=== PATIENT | male | born 1955 | race African-American/Black ===

== ENCOUNTER 2024-05-02 20:12 | Emergency (ER) | payer MEDICARE, OTHER ==
[~2024-05-02] VITALS: Ht 193 cm; Wt 90.7 kg
[2024-05-02 20:15] VITALS: TEMP 97.8
[2024-05-02] MEDS: IV NS 0.9% 1,000 ML BAG IV ONE ×2 (21:10→22:50)
[2024-05-02 21:14] LABS: BASOPHILS % (AUTO) 0.2 % (0.0-2.0); EOSINOPHILS % (AUTO) 0.1 % (0.0-6.0); HEMATOCRIT 32 % (39-51); HEMOGLOBIN 9.7 g/dL (13.5-17.5); LYMPHOCYTES # (AUTO) 0.9 K/uL (0.8-4.8); LYMPHOCYTES % (AUTO) 8.1 % (20.0-44.0); MEAN CORPUSCULAR HEMOGLOBIN 27 PG (26.0-33.0); MEAN CORPUSCULAR HGB CONC 31 g/dl (31.0-36.0); MEAN CORPUSCULAR VOLUME 88 fL (80-96); MONOCYTES # (AUTO) 0.6 K/uL (0.1-1.30); MONOCYTES % (AUTO) 4.9 % (2.0-12.0); NEUTROPHILS % (AUTO) 86.7 % (43.0-81.0); PLATELET COUNT (AUTO) 163 K/uL (150-450); RED BLOOD CELL COUNT(AUTO) 3.57 MIL/uL (4.5-6.0); WHITE BLOOD COUNT (AUTO) 11.5 K/uL (4.3-11.0)
[2024-05-02 21:23] LABS: INR 1.25 (0.91-1.10); PROTHROMBIN TIME 12.8 SECS (9.2-11.1)
[2024-05-02 21:29] LABS: ALANINE AMINOTRANSFERASE 20 U/L (12-78); ALBUMIN 2.3 g/dL (3.4-5.0); ALKALINE PHOSPHATASE 133 U/L (46-116); ASPARTATE AMINOTRANSFERASE 50 U/L (15-37); BILIRUBIN,DIRECT 0.3 mg/dL (0.0-0.2); BILIRUBIN,TOTAL 0.8 mg/dL (0.2-1.0); CALCIUM, SERUM 11.6 mg/dL (8.5-10.1); CARBON DIOXIDE 28 mmol/L (21-32); CHLORIDE 104 mmol/L (98-107); GLUCOSE 102 mg/dL (74-106); POTASSIUM 3.5 mmol/L (3.5-5.1); SODIUM SERUM 137 mmol/L (136-145); TOTAL PROTEIN, SERUM 8.1 g/dL (6.4-8.2); UREA NITROGEN, BLOOD 11 mg/dL (7-18)
[2024-05-02 21:34] LABS: LACTIC ACID 2.4 mmol/L (0.4-2.0)
[2024-05-02] MEDS ORDERED: IOHEXOL-350 100 ML VIAL IV ONE (21:34)
[2024-05-02] MEDS ORDERED: IV NS 0.9% 250 ML IV ONE (21:35)
[2024-05-02 21:45] LABS: PARTIAL THROMBOPLASTIN TIME 22.4 SEC (24.3-34.3)
[2024-05-02] MEDS ORDERED: CEFEPIME 1 GM VIAL ONE (22:03)
[2024-05-02] MEDS: CEFEPIME 1 GM in IV D5W 50 ML IV ONE (22:15)
[2024-05-02] MEDS ORDERED: VANCOMYCIN 1 GM /D5W 250 ML PB IV ONE (22:31)
[2024-05-02] MEDS: methylPREDNISolone SOD SUCC 125 MG/2ML VIAL IV ONE (22:51)
[2024-05-02] MEDS: VANCOMYCIN 1 GM in IV D5W 250 ML IV ONE (22:55)
[2024-05-02] MEDS: IPRATROPIUM NEB FS 0.5 MG/2.5 ML AMPUL.NEB NEB ONE (23:02)
[2024-05-02] MEDS: ALBUTEROL FS 2.5 MG/0.5 ML VIAL.NEB NEB ONE (23:02)
[2024-05-02 23:15] VITALS: O2SAT 99
[2024-05-02 23:25] VITALS: O2SAT 100
[2024-05-02 23:28] LABS: APPEARANCE,URINE CLEAR (CLEAR); BILIRUBIN,URINE NEGATIVE (NEGATIVE); BLOOD, URINE NEGATIVE Ery/uL (NEGATIVE); COLOR,URINE YELLOW (YELLOW); KETONES,URINE NEGATIVE (NEGATIVE); LEUKOCYTE ESTERASE ,URINE NEGATIVE (NEGATIVE); NITRITE, URINE NEGATIVE (NEGATIVE); PROTEIN,URINE TRACE mg/dl (NEGATIVE); RBC,URINE NONE SEEN /HPF (0-2); UGLUCOSE NEGATIVE (NEGATIVE)
[2024-05-02 23:29] LABS: ADD URINE CULTURE NO; BACTERIA,URINE None seen /HPF (None Seen); MUCUS,URINE Few /LPF (None Seen); SQUAMOUS EPITHELIAL CELL,UR None Seen /HPF (None Seen); WBC,URINE NONE SEEN /HPF (0-3)
[2024-05-02 23:30] VITALS: BP 116/80; O2SAT 98
[2024-05-03] MEDS ORDERED: LORAZEPAM INJ 2 MG/ML VIAL ONE (02:05)
[2024-05-03] MEDS: LORAZEPAM INJ 2 MG/ML VIAL IV ONE (02:50)
== END 2024-05-03 04:42 | disposition home or self-care (01) ==
LOC: ER 20:13
DX: A41.9 Sepsis, unspecified organism (principal); J18.9 Pneumonia, unspecified organism; R65.21 Severe sepsis with septic shock; J96.01 Acute respiratory failure with hypoxia; F41.9 Anxiety disorder, unspecified; Z85.038 Personal history of other malignant neoplasm of large intestine; Z85.118 Personal history of other malignant neoplasm of bronchus and lung; Z88.8 Allergy status to other drugs, medicaments and biological substances; Z66 Do not resuscitate; Z20.822 Contact with and (suspected) exposure to COVID-19
CPT/HCPCS: 99291; 96365; 71275; 71045; 96367; 96361; 96375 ×2; 87426; 93005; 82803; 84145; 85025; 80048; 87040; 87086; 83605 ×2; 80076; 85378; 81001; 36415; 84484 ×2; 85730; 94799; 94640; J3370; J7060; J7030 ×2; J7050; J0692; Q9967; J2060; J2919